=== PATIENT | female | born 1975 | race Caucasian/White ===

== ENCOUNTER 2018-06-26 20:45 | Emergency (ER) | payer OTHER ==
[~2018-06-26] VITALS: Ht 170.2 cm; Wt 67.1 kg
[~2018-06-26 20:45] MED LIST: ALLEGRA ALLERG180 MG PO; AMBIEN CR12.5 MG/BL PO; ANTIVERT25 M1 PO; LUNESTA1 MG; MEDROL PACK; MEDROL4 MG PO; PROZAC10 MG; RELPAX40 MG PO; WELLBUTRIN SR150 MG PO; XANAX0.25 MG PO
[2018-06-26] MEDS ORDERED: LUNESTA3 MG (21:07)
[2018-06-26] MEDS ORDERED: PEPCID AC10 MG (21:07)
[2018-06-26] MEDS ORDERED: PRILOSEC OTC20 MG (21:07)
[2018-06-26] MEDS ORDERED: DICY20TA (21:07)
== END 2018-06-27 00:01 | disposition home or self-care (01) ==
LOC: ER 20:45
DX: K21.9 Gastro-esophageal reflux disease without esophagitis (principal)

== ENCOUNTER → 2023-11-23 | Emergency (ER) | payer OTHER ==
[~2023-11-23] MED LIST changes: +DICY20TA; +LUNESTA3 MG; +NORFLEX100MG PO; +PEPCID AC10 MG; +PRILOSEC OTC20 MG; +ZITHROMAX500 MG PO
== END | disposition left against medical advice (07) ==
LOC: ER 12:05
DX: Z53.21 Procedure and treatment not carried out due to patient leaving prior to being seen by health care provider (principal)